=== PATIENT | male | born 1955 | race Hispanic/Latino ===

== ENCOUNTER 2023-01-22 22:01 | Emergency (ER) | payer MEDICARE, OTHER, SELFPAY ==
[~2023-01-22 22:01] MED LIST: Iopamidol 370 76% 100 ML VIAL ONE
[2023-01-22] MEDS ORDERED: Nitroglycerin 0.4 MG TAB (25 Tab Bottle) ONE (22:18)
[2023-01-22] MEDS ORDERED: Ipratropium/Albuterol 3 ML NEB ONE ×2 (22:18→22:21)
[2023-01-22 22:45] LABS: Hemoglobin 17.9 g/dL (14.0-18.0); Mean Corpuscular HGB CONC 33.2 g/dL (32.0-36.0); Mean Corpuscular Hemoglobin 34.3 pg (27.0-31.0); Mean Platelet Volume 7.8 fL (7.4-10.4); Platelet Count 224 10x3/uL (130-400); RBC Distribution Width 12.1 % (11.5-14.5); Red Blood Cell (RBC) Count 5.21 mill/uL (4.70-6.10); White Blood Cell (WBC) Count 9.1 10x3/uL (4.8-10.8)
[2023-01-22 22:46] LABS: MDiff Complete? YES; Manual Diff?? YES
[2023-01-22 22:50] LABS: Base Excess-Venous -4.5 mmol/L (-2.0 to 3.0); Bicarbonate (HCO3v) 20.9 mmol/L (22.0-28.0); CO2 Tension (PvCO2) 39.3 mmHg (42.0-51.0); Chloride 102 mmol/L (98-107); Hemoglobin - Calc 18.2 g/dL (14.0-18.0); Potassium 3.7 mmol/L (3.5-5.1); Sodium 134 mmol/L (138-145); vO2 Saturation-calc 93.3 % (60.0-85.0)
[2023-01-22 22:51] LABS: Calcium, Ionized 1.03 mmol/L (1.15-1.33); T. Carbon Dioxide 22.1 mmol/L (22.0-28.0)
[2023-01-22] MEDS ORDERED: Furosemide 20 MG/2 ML VIAL ONE (22:52)
[2023-01-22 22:53] LABS: ALT (SGPT) 29 U/L (8-55); AST (SGOT) 33 U/L (5-34); Albumin 4.2 g/dL (3.4-4.8); Alkaline Phosphatase 99 U/L (40-110); Anion Gap 18 mmol/L (10-20); BUN (Urea Nitrogen) 7 mg/dL (8.4-25.7); Bilirubin, Total 0.7 mg/dL (0.2-1.2); Calc. Creatinine Clearance 0 mL/min (70-130); Calcium 8.4 mg/dL (7.8-10.44); Carbon Dioxide 18 mmol/L (23-31); Chloride 101 mmol/L (98-107); Estimated GFR 86; Globulin 3.3 g/dL (2.4-3.5); Glucose 126 mg/dL (80-115); Potassium 3.9 mmol/L (3.5-5.1); Protein, Total 7.5 g/dL (5.8-8.1); Sodium 133 mmol/L (136-145)
[2023-01-22 22:58] LABS: Bilirubin Negative (Negative); Blood, Urine Small (Negative); Clarity Clear (Clear); Glucose, Urine (Dipstick) 250 mg/dL (Negative); Ketone, Urine Negative (Negative); Leukocyte Negative (Negative); Nitrite Negative (Negative); Protein, Urine (Dipstick) > or equal to 300 mg/dL (Neg-Trace)
[2023-01-22] MEDS ORDERED: Nitroglycerin 2% Ointment 1 INCH/1 GM Packet ONE (23:02)
[2023-01-22 23:03] LABS: Eosinophils 2 % (0-10); Lymphocytes 36 % (21-51); Monocytes 11 % (0-10); Neutrophil 47 % (42-75); Reactive Lymphocytes 4 % (0-10)
[2023-01-22 23:04] LABS: Macrocytosis SLIGHT = 6-15 cells (100X) (0-5/hpf); Platelet Morphology Comment Appears Adequate
[2023-01-22 23:08] LABS: Specific Gravity, Urine 1.012 (1.005-1.030)
[2023-01-22 23:09] LABS: Bacteria/HPF Rare-Few HPF (None Seen); RBC/HPF 0-3 HPF (0-3); Squamous Epithelial 0-3 HPF (0-3); WBC/HPF None Seen HPF (0-3)
[2023-01-22 23:10] LABS: CKMB 5.2 ng/mL (0-6.6)
[2023-01-22 23:24] LABS: Alcohol 32 mg/dL (Less than 10); CK (CPK) 195 U/L (30-200)
[2023-01-23 00:13] LABS: SARS-CoV-2 NAA Rapid Test Not Detected (NotDetected)
[2023-01-23 01:17] LABS: Lactic Acid 0.9 mmol/L (0.5-2.2)
[2023-01-23 01:30] LABS: Troponin I 0.099 ng/mL (< 0.028)
== END 2023-01-23 01:49 | disposition home or self-care (01) ==
LOC: NAV ERS 22:01
DX: J81.1 Chronic pulmonary edema (principal); J90 Pleural effusion, not elsewhere classified; I10 Essential (primary) hypertension; E66.9 Obesity, unspecified; F17.210 Nicotine dependence, cigarettes, uncomplicated; R77.8 Other specified abnormalities of plasma proteins; Z20.822 Contact with and (suspected) exposure to COVID-19
CPT/HCPCS: 0240U; 71045; 71275; 80053; 80307; 82330; 82435; 82550; 82553; 82803; 83605; 83880; 84132; 84295; 84484; 85014; 85025; 85379; 93005; 94640; 94760; 96372; 96374; 99285; 36415; 81003; 81015; J1650; J1940; J7620; Q9967